=== PATIENT | male | born 1950 | race Caucasian/White ===

== ENCOUNTER 2021-03-01 08:14 | Day surgery (SDC) | payer OTHER ==
[~2021-03-01] VITALS: Ht 177.8 cm; Wt 110.1 kg
[~2021-03-01 08:14] MED LIST: METO100ER PO; OXYACE7.5T PO; PANT40 PO; Tylenol325 MG PO; XARELTO15 MG PO
[2021-03-01] MEDS ORDERED: Coumadin2 MG (08:43)
[2021-03-01 09:25] LABS: Influenza A, PCR NEGATIVE (NEGATIVE); Influenza B, PCR NEGATIVE (NEGATIVE); Resp Syncytial Virus, PCR NEGATIVE (NEGATIVE); SARS-Cov-2 (COVID-19) PCR, MMC NEGATIVE (NEGATIVE)
== END 2021-03-01 10:54 | disposition home or self-care (01) ==
LOC: ORSCSDS 08:14
PROVIDERS: Surgery
PROC: 0DJD8ZZ Inspection of Lower Intestinal Tract, Via Natural or Artificial Opening Endoscopic (ICD-10-PCS; principal; 2021-03-01 09:45)
DX: Z12.11 Encounter for screening for malignant neoplasm of colon (principal); I48.91 Unspecified atrial fibrillation; I10 Essential (primary) hypertension; E66.9 Obesity, unspecified; Z68.34 Body mass index [BMI] 34.0-34.9, adult; Z79.01 Long term (current) use of anticoagulants; Z79.899 Other long term (current) drug therapy
CPT/HCPCS: 0241U; 87426; C9803; J2704; J7120

== ENCOUNTER 2024-11-11 08:59 | Day surgery (SDC) | payer OTHER ==
[2024-11-11] VITALS (9 sets, daily range): BP systolic 94–160; BP diastolic 63–123
[~2024-11-11] VITALS: Ht 177.8 cm; Wt 124.0 kg
[~2024-11-11 08:59] MED LIST changes: +CENTRUM SILVER1 EAC2 PO; +Coumadin2 MG; +DILT180 PO; +ELIQUIS5 M2 PO; +LOSA25 PO; +MAGNESIUM OXID400 M5 PO
[2024-11-11] MEDS ORDERED: VITAMIN D31000 UNI1 PO (09:16)
[2024-11-11] MEDS ORDERED: Verapamil HCL 2.5 MG/ML 2ML Injection ONE (09:50)
[2024-11-11] MEDS ORDERED: Nitroglycerin 2 MG/20 ML BTL ONE (09:51)
[2024-11-11] MEDS ORDERED: Heparin Sodium 1000 Units/ML 10ML MDV ONE (09:51)
[2024-11-11] MEDS ORDERED: NS 1,000 ML IV ONE ×2 (09:51→10:14)
[2024-11-11] MEDS ORDERED: NS 250 ML IV ONE (09:51)
[2024-11-11] MEDS ORDERED: Midazolam HCl 1MG / ML 2ML Vial ONE (10:14)
[2024-11-11] MEDS ORDERED: FentaNYL Citrate 50 MCG/ML 2 ML Injection ONE (10:14)
--- NOTE | 2024-11-11 13:01 | NUR ---
REPORT RECEIVED EARLIER, NO ACUTE CONCERNS AT THAT TIME, LATER REVIEWED D/C INSTRUCTIONS, D/C MEDICATIONS AND RESTARTING ELIQUIS, AND F/U APPT WITH PATIENT, VERBALIZE UNDERSTANDING WELL WHEN TO HOLD PRESSURE, CALL , RESUME NORMAL ACTIVITY, TALKED ABOUT PLANS FOR TRAVEL, HIKING. RECENTLY TR BAND REMOVED, IV REMOVED, DRESSED, BELONGINGS RETURNED, TAKEN BY MAURO Diaz RN TO PATIENT ENTRANCE, NO CONCERNS AT TIME OF DISCHARGE.
== END 2024-11-11 12:55 | disposition home or self-care (01) ==
LOC: MHTC 08:59
DX: I25.10 Atherosclerotic heart disease of native coronary artery without angina pectoris (principal); I10 Essential (primary) hypertension; E78.5 Hyperlipidemia, unspecified; I48.20 Chronic atrial fibrillation, unspecified; I48.11 Longstanding persistent atrial fibrillation; H91.90 Unspecified hearing loss, unspecified ear; E66.9 Obesity, unspecified; Z68.41 Body mass index [BMI] 40.0-44.9, adult; Z79.01 Long term (current) use of anticoagulants; Z79.899 Other long term (current) drug therapy; Z90.49 Acquired absence of other specified parts of digestive tract
CPT/HCPCS: 76937; 93458; 99152; 99153; A9270; C1769; C1887; J1644; J2250; J3010; J7030; J7050; Q9967